=== PATIENT | female | born 1960 | race Caucasian/White ===

== ENCOUNTER 2016-07-26 08:50 | Emergency (ER) | payer OTHER ==
[~2016-07-26] VITALS: Ht 149.9 cm; Wt 45.0 kg
[2016-07-26 08:52] VITALS: BP 154/70; PULSE 80; RESP 20; TEMP 97.8; O2SAT 98
--- NOTE | 2016-07-26 09:18 | PD ---
HPI Chief Complaint: Cold / Flu Symptoms Time Seen by Provider: 09:18 Travel History International Travel<30 days: No Contact w/Intl Traveler<30days: No Traveled to known affect area: No History of Present Illness HPI 55-year-old female with history of tobacco dependency and asthma presents to the emergency apartment for evaluation of cough and chest congestion worsening over last 2 weeks. States she has had cough productive of a green sputum in the morning but clears by afternoon. Denies fever or chills. No nausea, vomiting, diarrhea. No other symptoms to report. PFSH Past Medical History Asthma: Yes Respiratory: Yes (ASTHMA) Social History Alcohol Use: Yes Tobacco Use: Yes Substance Use: Yes Allergies-Medications (Allergen,Severity, Reaction): Coded Allergies: Opiate Agonists (Narcotics) (Verified Allergy, Severe, Itching, 07/26/16) Reported Meds & Prescriptions Reported Meds & Active Scripts Active Proair Hfa 8.5 GM Inh (Albuterol Sulfate) 90 Mcg/Act Aer 2 Puff INH Q4H PRN 108 mcg/actuation Prednisone 50 Mg Tab 50 Mg PO DAILY 5 Days Review of Systems Except as stated in HPI: all other systems reviewed are Neg Physical Exam Narrative GENERAL: Well-nourished, well-developed female patient, ambulatory no acute distress SKIN: Warm and dry. HEAD: Normocephalic. Atraumatic EYES: No scleral icterus. No injection or drainage. ENT: Mucosa pink and moist. No erythema or exudates. No uvular edema. No uvular , palatal, or tonsillar deviation. Airway patent. Nasal turbinates appear normal without nasal blood, purulent drainage or septal hematoma. NECK: Supple, trachea midline. No JVD or lymphadenopathy. CARDIOVASCULAR: Regular rate and rhythm without murmurs, gallops, or rubs. RESPIRATORY: Breath sounds diminished but with a faint inspiratory wheeze, equal bilaterally. No accessory muscle use. GASTROINTESTINAL: Abdomen soft, non-tender, nondistended. MUSCULOSKELETAL: No cyanosis, or edema. BACK: Nontender without obvious deformity. No CVA tenderness. Data Data Last Documented VS Vital Signs Date Time Temp Pulse Resp B/P Pulse Ox O2 Delivery O2 Flow Rate FiO2 07/26/16 08:52 97.8 80 20 154/70 98 Room Air Orders Influenzae A/B Antigen (07/26/16 09:19) Chest, Single Ap (07/26/16 ) MDM Medical Decision Making Medical Screen Exam Complete: Yes Emergency Medical Condition: Yes Medical Record Reviewed: Yes Differential Diagnosis Influenza versus pneumonia versus bronchitis versus asthma exacerbation Narrative Course 55-year-old female presents to emergency department for evaluation. Patient appears overall well. Chest x-rays without acute cardiopulmonary disease. Influenza screen is negative. This is likely a viral bronchitis. Patient is counseled length smoking cessation. She is encouraged to follow-up with primary care provider. She agrees to return immediately with any acute worsening symptoms. Diagnosis Primary Impression: Bronchitis Referrals: Primary Care Physician Patient Instructions: Acute Bronchitis (ED), General Instructions Additional Instructions: Humidified air may help to alleviate symptoms Stop smoking tobacco cigarettes Follow-up with her primary care provider Return immediately with any acute worsening of symptoms Med/Other Pt SpecificInfo: Prescription(s) given Scripts Albuterol 8.5 GM Inh (Proair Hfa 8.5 GM Inh)90 Mcg/Act Aer2 Puff INH Q4H PRN ( SHORTNESS OF BREATH) #1 INHALER Ref 0 108 mcg/actuation Prov:Nany Mcdaniel 07/26/16 Prednisone 50 Mg Tab50 Mg PO DAILY 5 Days Ref 0 Prov:Nany Mcdaniel 07/26/16 Disposition: 01 DISCHARGE HOME Condition: Stable Nany Mcdaniel Jul 26, 2016 09:18
--- NOTE | 2016-07-26 09:55 | RADRPT ---
EXAM DATE/TIME: 07/26/2016 09:16 [facility] COMPARISON: No previous studies available for comparison. INDICATIONS : Cough. Short of breath. Upper respiratory infection for 2 weeks. MEDICAL HISTORY : None. SURGICAL HISTORY : Cardiac valve replaced. ENCOUNTER: Initial ACUITY: 2 weeks PAIN SCORE: 0/10 LOCATION: Bilateral chest FINDINGS: Portable AP view of the chest demonstrates a normal-sized cardiac silhouette. No effusion, consolidat ion, or pneumothorax is visualized. The bones and soft tissues demonstrate no acute abnormality. CONCLUSION: No acute cardiopulmonary abnormality is identified. Reyes Cyr MD on July 26, 2016 at 9:53 Board Certified Radiologist. This report was verified electronically.
[2016-07-26] MEDS ORDERED: ALBUAER3 INH (10:11)
[2016-07-26] MEDS ORDERED: PRED50 PO (10:11)
== END 2016-07-26 10:21 | disposition home or self-care (01) ==
LOC: NEPB 08:50
DX: J40 Bronchitis, not specified as acute or chronic (principal); Z72.0 Tobacco use; Z87.09 Personal history of other diseases of the respiratory system
CPT/HCPCS: 71010; 87804; 99283